=== PATIENT | male | born 1980 | race Caucasian/White ===

== ENCOUNTER 2019-06-07 07:27 | Day surgery (SDC) | payer OTHER ==
[~2019-06-07] VITALS: Ht 180.3 cm; Wt 118.0 kg
[~2019-06-07 07:27] MED LIST: KETOROLAC 60 MG/2 ML VIAL (J1885) As Ordered ONE; LIDOCAINE 2% INJ 100 MG/5 ML SDV (FOR ANES.) As Ordered ONE; LR 1,000 ML IV ONE; NAPR-837 PO; ONDANSETRON 4MG/2ML VIAL (J2405) As Ordered ONE; PROPOFOL 200 MG/20 ML VIAL As Ordered ONE; RIZA5TAB PO; ROCURONIUM BROMIDE 50 MG/5 ML VIAL As Ordered ONE; ROPI0.253 PO; SERT-138 PO; dexameTHASONE 4 MG/ML 1ML VIAL (J1100) As Ordered ONE
[2019-06-07] MEDS: LIDOCAINE 1% SDV INJ 30 ML VIAL As Ordered ONE (09:54)
[2019-06-07] MEDS: BUPIVACAINE HCL 0.25% 30 ML VIAL As Ordered ONE (09:54)
[2019-06-07] MEDS ORDERED: MIDAZOLAM INJ 2 MG/2 ML VIAL (J2250) As Ordered ONE (10:00)
[2019-06-07] MEDS ORDERED: fentaNYL 100 MCG/2 ML INJECTION (J3010) As Ordered ONE ×2 (10:00→10:36)
[2019-06-07] MEDS ORDERED: ROCURONIUM BROMIDE 50 MG/5 ML VIAL As Ordered ONE (10:35)
[2019-06-07] MEDS ORDERED: KETOROLAC 30 MG/ML VIAL (J1885) IV PRN (12:15)
[2019-06-07] MEDS ORDERED: METOCLOPRAMIDE INJ 10MG/2ML VIAL (J2765) IV PRN (12:15)
[2019-06-07] MEDS ORDERED: PERCOCET 5MG/325MG TAB PO PRN (12:15)
[2019-06-07] MEDS ORDERED: ONDANSETRON 4MG/2ML VIAL (J2405) IV PRN (12:15)
[2019-06-07] MEDS ORDERED: LR 1,000 ML IV SCH (12:15)
[2019-06-07] MEDS ORDERED: NORCO, ANEXSIA 5/325MG TABLET (HYDROcodone/ACETAMINOPHEN) PO PRN (12:15)
[2019-06-07] MEDS ORDERED: fentaNYL 100 MCG/2 ML INJECTION (J3010) IV PRN (12:15)
--- NOTE | 2019-06-07 12:20 | ROOPDOC ---
[facility] Report Of Operation Report of Operation DATE OF PROCEDURE: 06/07/19 PREPROCEDURE DIAGNOSES: lipomas posterior neck, left middle back. POSTPROCEDURE DIAGNOSES: same. PROCEDURE: Excision of lipoma posterior neck, left middle back. SURGEON: Trey Cabrera MD SYSTEM SPECIALIST: ANESTHESIA: General Anesthesia. ESTIMATED BLOOD LOSS: Approximately 40 mL. COMPLICATIONS: none SPECIMENS: Lipoma x 2. REMARKS: Patient is a 39-year-old male who has a long-standing lipoma on his left mid back area also notes a subcutaneous nodularity at the back of his neck in between his shoulders. This one measures 4 x 3 cm. Left mid back lipoma measures 7 x 5 cm.. PROCEDURE NOTE: DESCRIPTION OF PROCEDURE: Patient received 2 g Ancef preoperatively for wound prophylaxis. He was brought to the operating room, remained on the stretcher. Compression boots placed in both lower extremities for DVT prophylaxis. General endotracheal anesthesia started. He was then placed prone on the procedure table with his pressure points padded. His posterior neck and whole back area was then prepped and draped in usual sterile fashion. We paused for a surgical timeout using both pre-incision safety checklist to verify correct patient, procedure site and additional clinical information prior to beginning the procedure. He has a distinct bulging on the bottom of the posterior neck area where it meets the shoulders. When he is sedated up this is more prominent though when placed on the prone position with his, though noticeably is bulging out but the [place] location for margins seems to be not too well distinct. This is within his tattooed area. I marked the incision line so I could re-suture back the skin without destroying the tattooed area of his skin. This was liberally infiltrated with a mixture of 1% lidocaine and quarter percent Marcaine at the subcutaneous space likewise into dermis along the incision line. Roughly a 5 cm transverse incision was then created and deepened through to the subcutaneous tissue. There was no real defecation of the nodularity to the subcutaneous tissue. I created a circumferential skin and subcutaneous tissue flap and compressing the area of the visible nodularity and then came posteriorly down to above but not within the investing fascia of the neck and back area. The adipose tissue nodularity was then detached from the investing fascia and circumferentially removed. This was temporarily packed and expected inspected for hemostasis. Ching hemostatic powder was left at the wound bed. This was then closed in layers with 3-0 Vicryl subcutaneous space as well as the dermis to align the previously marked points of the skin. Skin is then closed with 4-0 Monocryl in subcuticular fashion. In similar fashion the more prominent left mid back lipoma was infiltrated with our local anesthesia both as a field block and as well as intra-dermis along the incision line. He made roughly about a 10 cm slightly oblique incision line and compressing the nodularity. This is taken through to the superficial subcutaneous tissue. I like the one in the neck at this one was a distinct lobulated fat entity separate from the subcutaneous tissue which was oriented in a different plane. The nodularity also is quite lobulated and with stringy encapsulations. I circumferentially dissected around this plane this came apart easily and following the plane of the flimsy fibrous capsule the whole of the lipoma was removed. There was some leftover fatty tissue enveloping the muscles and likewise to ribs over that area that I cleft. Again this was inspected for hemostasis which was cauterized at the bleeding points and I also left Ching hemostatic powder as the wound bed. This was then closed in layers with 3-0 Vicryl at the subcutaneous space and at the dermis and a running subcutaneous suture of 4-0 Monocryl to close the skin. On both incisions the incisions were covered with Steri-Strips, 4 x 4 dressing and Tegaderm. Patient was replaced back in the stretcher supine, awakened and extubated and brought to recovery room in the stable condition. TREY CABRERA MD Jun 07, 2019 09:43
[2019-06-07 14:05] VITALS: BP 119/77
== END 2019-06-07 14:23 | disposition home or self-care (01) ==
LOC: M SDC 07:27
PROVIDERS: ATTEND Surgery
DX: D17.1 Benign lipomatous neoplasm of skin and subcutaneous tissue of trunk (principal); D17.0 Benign lipomatous neoplasm of skin and subcutaneous tissue of head, face and neck; Z87.891 Personal history of nicotine dependence
CPT/HCPCS: 11406; 11426; 88304; J1100; J1885; J2250; J2405; J3010

== ENCOUNTER 2022-09-06 09:03 | Emergency (ER) | payer OTHER ==
[~2022-09-06] VITALS: Ht 175.3 cm; Wt 136.4 kg
[~2022-09-06 09:03] MED LIST changes: -KETOROLAC 60 MG/2 ML VIAL (J1885) As Ordered ONE; -LIDOCAINE 2% INJ 100 MG/5 ML SDV (FOR ANES.) As Ordered ONE; -LR 1,000 ML IV ONE; -ONDANSETRON 4MG/2ML VIAL (J2405) As Ordered ONE; -PROPOFOL 200 MG/20 ML VIAL As Ordered ONE; -RIZA5TAB PO; +RIZA5TAB2 PO; -ROCURONIUM BROMIDE 50 MG/5 ML VIAL As Ordered ONE; -dexameTHASONE 4 MG/ML 1ML VIAL (J1100) As Ordered ONE
[2022-09-06 10:10] LABS: BASO % 0.4 % (0.0-1.0); EOS # 0.1 10^3/uL (0.0-0.5); EOS % 1.6 % (0.0-3.0); HEMATOCRIT 46.8 % (42.0-52.0); HEMOGLOBIN 15.7 g/dl (13.5-17.5); LYMPH # 1.3 10^3/uL (1.5-5.0); LYMPH % 25.7 % (24.0-44.0); MEAN CORPUSCULAR HEMOGLOBIN 29.6 pg (27.0-33.0); MEAN CORPUSCULAR HGB CONC 33.5 g/dl (32.0-36.5); MEAN CORPUSCULAR VOLUME 88.3 fl (80.0-96.0); MONO # 0.4 10^3/uL (0.0-0.8); MONO % 8.6 % (2.0-8.0); NEUTROPHILS # 3.2 10^3/uL (1.5-8.5); NEUTROPHILS % 63.5 % (36.0-66.0); PLATELET COUNT, AUTOMATED 212 10^3/uL (150-450); WHITE BLOOD COUNT 5.1 10^3/uL (4.0-10.0)
[2022-09-06 10:38] LABS: BLOOD UREA NITROGEN 15 MG/DL (9-23); CALCIUM LEVEL 9.4 MG/DL (8.5-10.1); CARBON DIOXIDE LEVEL 25 MMOL/L (20-31); CHLORIDE LEVEL 103 MMOL/L (98-107); CREATININE FOR GFR 0.93 MG/DL (0.70-1.30); GLOMERULAR FILTRATION RATE > 60.0 (>60); GLUCOSE, FASTING 134 MG/DL (60-100); POTASSIUM SERUM 4.3 MMOL/L (3.5-5.1); SODIUM LEVEL 137 MMOL/L (136-145)
[2022-09-06 11:15] VITALS: BP 145/81
== END 2022-09-06 11:26 | disposition home or self-care (01) ==
LOC: M ED 09:03
DX: R20.2 Paresthesia of skin (principal); R03.0 Elevated blood-pressure reading, without diagnosis of hypertension; V49.40XA Driver injured in collision with unspecified motor vehicles in traffic accident, initial encounter; Z79.52 Long term (current) use of systemic steroids; Z79.83 Long term (current) use of bisphosphonates; Z79.899 Other long term (current) drug therapy

== ENCOUNTER 2022-09-11 07:29 | Emergency (ER) | payer OTHER ==
[~2022-09-11] VITALS: Ht 175.3 cm; Wt 128.7 kg
[2022-09-11 07:30] VITALS: BP 155/94
[2022-09-11] MEDS ORDERED: methocarbamoL 750 MG TAB PO ONE (09:25)
[2022-09-11] MEDS ORDERED: predniSONE 20 MG TAB PO ONE (09:25)
[2022-09-11] MEDS ORDERED: METH-1165 PO (09:31)
[2022-09-11] MEDS ORDERED: PRED10TA2 PO (09:31)
== END 2022-09-11 09:43 | disposition home or self-care (01) ==
LOC: M ED 07:29
DX: M54.32 Sciatica, left side (principal); Z79.52 Long term (current) use of systemic steroids; Z79.899 Other long term (current) drug therapy
CPT/HCPCS: 72110; 99282; J7512

== ENCOUNTER 2024-04-04 11:59 | Emergency (ER) | payer BC, OTHER ==
[~2024-04-04] VITALS: Ht 182.9 cm; Wt 136.4 kg
[~2024-04-04 11:59] MED LIST changes: +METH-1165 PO; +PRED10TA2 PO; -ROPI0.253 PO; +ROPI5TAB19 PO; +[UNRECOGNIZED DRUG - REMARK]
[2024-04-04] MEDS: KETOROLAC 30 MG/ML 1ML VIAL IM ONE (15:35)
[2024-04-04] MEDS: ACETAMINOPHEN 500 MG TAB PO ONE (15:35)
[2024-04-04] MEDS ORDERED: MELO7.5T35 PO (16:52)
[2024-04-04] MEDS ORDERED: PRED20TA PO (16:52)
[2024-04-04 17:17] VITALS: BP 134/89; TEMP 97.8; O2SAT 98
== END 2024-04-04 17:18 | disposition home or self-care (01) ==
LOC: M ED 11:59
DX: M54.32 Sciatica, left side (principal); M54.16 Radiculopathy, lumbar region; M51.26 Other intervertebral disc displacement, lumbar region; G43.909 Migraine, unspecified, not intractable, without status migrainosus; F10.10 Alcohol abuse, uncomplicated; Z91.030 Bee allergy status; Z79.52 Long term (current) use of systemic steroids; Z79.899 Other long term (current) drug therapy
CPT/HCPCS: 72131; 73502; 96372; 99283; J1100; J1885

== ENCOUNTER 2024-07-20 07:52 | Emergency (ER) | payer BC, OTHER ==
[~2024-07-20] VITALS: Ht 167.6 cm; Wt 130.2 kg
[~2024-07-20 07:52] MED LIST changes: +MELO7.5T35 PO; +PRED20TA PO
[2024-07-20 07:56] VITALS: TEMP 97.9
[2024-07-20] MEDS: FLUORESCEIN OPHTH 1MG STRIP OD ONE (08:05)
[2024-07-20] MEDS: TETRACAINE 0.5% OPHTH SOLN 4ML OD ONE (08:05)
[2024-07-20 08:31] LABS: BASO % 0.5 % (0.0-1.0); EOS # 0.1 10^3/uL (0.0-0.5); EOS % 1.3 % (0.0-3.0); HEMATOCRIT 47.6 % (42.0-52.0); HEMOGLOBIN 15.7 g/dl (13.5-17.5); LYMPH # 2.1 10^3/uL (1.5-5.0); MEAN CORPUSCULAR HEMOGLOBIN 30.3 pg (27.0-33.0); MEAN CORPUSCULAR VOLUME 91.7 fl (80.0-96.0); MONO # 0.5 10^3/uL (0.0-0.8); MONO % 8.4 % (2.0-8.0); NEUTROPHILS # 3.3 10^3/uL (1.5-8.5); NEUTROPHILS % 54.6 % (36.0-66.0); PLATELET COUNT, AUTOMATED 211 10^3/uL (150-450); RED BLOOD COUNT 5.19 10^6/uL (4.30-6.10)
[2024-07-20] MEDS ORDERED: EXCETAB32 PO (09:13)
[2024-07-20] MEDS ORDERED: IBUP200T46 PO (09:13)
[2024-07-20] MEDS ORDERED: HOME MED LIST COMPLETE! XX SCH (09:15)
[2024-07-20] MEDS ORDERED: CVS1MIS79 XX (12:33)
[2024-07-20] MEDS ORDERED: SYST0.4D2 OD (12:33)
[2024-07-20] MEDS ORDERED: TOBRSUS8 OD (12:33)
[2024-07-20] MEDS ORDERED: VALT1TAB PO (12:33)
[2024-07-20] MEDS ORDERED: SYST1SOL OD (12:33)
[2024-07-20] MEDS ORDERED: PRED20TA PO (12:33)
[2024-07-20 12:46] VITALS: BP 150/87; O2SAT 97
== END 2024-07-20 13:03 | disposition home or self-care (01) ==
LOC: M ED 07:52 → EDBD 07:52 → M ED 13:03
DX: G51.0 Bell's palsy (principal); H10.31 Unspecified acute conjunctivitis, right eye; I10 Essential (primary) hypertension; F10.10 Alcohol abuse, uncomplicated; Z79.82 Long term (current) use of aspirin; Z79.52 Long term (current) use of systemic steroids; Z79.899 Other long term (current) drug therapy; Z91.030 Bee allergy status; Z87.891 Personal history of nicotine dependence

== ENCOUNTER → 2025-01-28 | Outpatient (REF) | payer BC ==
[~2025-01-28] MED LIST changes: +CVS1MIS79 XX; +EXCETAB32 PO; +IBUP200T46 PO; +SYST0.4D2 OD; +SYST1SOL OD; +TOBRSUS8 OD; +VALT1TAB PO
[2025-01-28 17:07] LABS: BASO # 0.0 10^3/uL (0.0-0.2); BASO % 0.4 % (0.0-1.0); EOS # 0.1 10^3/uL (0.0-0.5); EOS % 1.4 % (0.0-3.0); LYMPH # 1.6 10^3/uL (1.5-5.0); LYMPH % 32.8 % (24.0-44.0); MONO # 0.4 10^3/uL (0.0-0.8); MONO % 9.0 % (2.0-8.0); NEUTROPHILS # 2.7 10^3/uL (1.5-8.5); NEUTROPHILS % 56.2 % (36.0-66.0); PLATELET COUNT, AUTOMATED 197 10^3/uL (150-450)
[2025-01-28 17:23] LABS: ESTIMATED AVERAGE GLUCOSE 134.0 MG/DL (60-110)
[2025-01-28 17:30] LABS: ALT/SGPT 84 U/L (7.0-40); AST/SGOT 40 U/L (<34); CALCIUM LEVEL 9.0 MG/DL (8.5-10.1); CARBON DIOXIDE LEVEL 23 MMOL/L (20-31); CHLORIDE LEVEL 108 MMOL/L (98-107); CHOLESTEROL LEVEL 96 MG/DL (<200); CHOLESTEROL RISK RATIO 2.38 (<5); CREATININE FOR GFR 0.85 MG/DL (0.70-1.30); GLOMERULAR FILTRATION RATE > 90.0 (>60); LDL CHOLESTEROL 41.8 MG/DL (<100); NON-HDL-C 55.8 MG/DL; POTASSIUM SERUM 4.3 MMOL/L (3.5-5.1); SODIUM LEVEL 143 MMOL/L (136-145); TRIGLYCERIDES LEVEL 70 MG/DL (<150)
== END ==
LOC: M SFHCLERA 10:06
PROVIDERS: ATTEND Student in an Organized Health Care Education/Training Program
DX: R03.0 Elevated blood-pressure reading, without diagnosis of hypertension (principal); R04.0 Epistaxis